=== PATIENT | female | born 1970 ===

== ENCOUNTER 2017-03-05 14:59 | Outpatient (CLI) | payer BC, OTHER | END 2017-03-05 15:00 | disposition home or self-care (01) | LOC: LABHHL 14:59 | PROVIDERS: ATTEND Specialist | DX: N63 Unspecified lump in breast (principal) | CPT/HCPCS: 88305 ==

== ENCOUNTER 2017-03-18 15:00 | Outpatient (CLI) | payer BC, OTHER | END 2017-03-18 15:01 | disposition home or self-care (01) | LOC: LABHHL 15:00 | PROVIDERS: ATTEND Specialist | DX: N63 Unspecified lump in breast (principal); N64.89 Other specified disorders of breast | CPT/HCPCS: 88305 ==